=== PATIENT | male | born 1965 | race Caucasian/White ===

== ENCOUNTER 2016-10-07 10:02 | Emergency (ER) | payer OTHER ==
[~2016-10-07] VITALS: Ht 180.3 cm; Wt 86.4 kg
[~2016-10-07 10:02] MED LIST: LEVO750T9 PO; METR500T PO
[2016-10-07 10:06] VITALS: BP 174/106; PULSE 66; RESP 15; O2SAT 100
[2016-10-07 10:39] VITALS: BP 164/89; PULSE 64; RESP 18; O2SAT 100
--- NOTE | 2016-10-07 10:45 | ED.REPORT ---
HPI-Chest Pain 40 and Over Date of Service Oct 07, 2016 ED Provider: Waldemar Carvalho MD The patient is a 51 year old male with history of untreated hypertension who was sent to the emergency department from urgent care. The patient was being seen at urgent for nausea, vomiting, and a rash to his wrist. He mentioned to staff about a recent episode of chest pain and was sent to the emergency department. The patient states that 1 week ago he had an episode of chest pain, palpitations, and diaphoresis. He took his blood pressure and it was 178 systolic. He has not experienced chest pain since this episode. He denies current chest pain, shortness of breath, abdominal pain, fever or chills. His nausea and vomiting has improved but he does feel generally weak. Nursing Notes Stated Complaint: CHEST PAIN/SENT FROM Chief Complaint: Chest Pain Nursing Notes Reviewed: Yes Allergies: Coded Allergies: No Known Allergies (Unverified , 08/30/15) Scheduled Mupirocin (Mupirocin Ointment) 22 Gm Oint...g. 1 APPLIC TOP TID Scheduled PRN Ondansetron ODT (Zofran ODT) 4 Mg Tablet 4 MG PO Q4H PRN PRN For Nausea Ondansetron ODT (Zofran ODT) 4 Mg Tablet 4 MG PO Q4H PRN PRN For Nausea General Time Seen by MD: 10:39 Chief Complaint Chest pain Hx Obtained From: Patient Arrived By: Walk-in Sudden in Onset?: Yes Onset Occurred: 1 week ago Symptom Duration: 1 - 4 hours Location: : Substernal Quality: Painful Radiation: : Does not radiate Migration/Movement: Reports: None Severity: Current: Mild Severity: Maximum: Moderate Recent Healthcare: No recent hospitalization, Recent doctor visit Similar Sx Previous: No Past Medical History Past Medical History Hypertension, not on medication Past Surgical History None Family History Noncontributory Smoking History Never Smoker Social History Alcohol Use: 3-5 per day Drug Use: Denies drug use Other Social History: Good social support, Local resident Ambulatory Status Independent Review of Systems Constitutional: Reports: Weakness - generalized, Denies: Chills, Fever Respiratory: Denies: Shortness of breath Cardiovascular: Reports: Chest pain (now resolved), Palpitations (now resolved) GI: Reports: Nausea, Vomiting, Denies: Abdominal pain Skin: Reports Diaphoresis (now resolved), Reports Itching, Reports Rash Complete sys rev & neg: except as marked. Physical Exam Initial Vital Signs Vital Signs (First) Date Time Temp Pulse Resp B/P Pulse Ox O2 Delivery O2 Flow Rate FiO2 10/07/16 10:06 36.2 66 15 174/106 100 Room Air Initial VS: Reviewed Head / Eyes: Atraumatic, Normocephalic, PERRL ENT: Mucous membranes moist, Conjunctiva normal, No scleral icterus Neck: Supple, Non-tender, Full range of motion Lymphatic: No lymphadenopathy Extremities: Vascular intact, Neuro intact, No swelling, No tenderness Neurologic: Alert, Oriented, Nonfocal Psychiatric: Mood/affect normal, Behavior normal, Normal thought content General/Constitutional: Awake, Alert, No acute distress, Well appearing, Cooperative Respiratory / Chest: Atraumatic, Breath sounds NL, Breath sounds = bilat, No respiratory distress, No rales, No rhonchi, No wheezing, No stridor, No chest tenderness Cardiovascular: Heart rate NL, Regular rhythm, Heart sounds NL, No gallop, No murmurs, No rubs, Peripheral circulation NL, Pulses = bilaterally, No gross BP differential Abdomen: Atraumatic, Soft, Non-tender, McBurney's non-tender, No guarding, No rebound, BS normoactive, No distention, No hernia, No palpable mass Skin: Warm, Dry Rash / Lesion Notes: He does have a slight pustular appearing rash about the dorsum of his left hand. He has a resolving pustular tiny bolus rash about the dorsum of his feet. Interpretation & Diagnostics Lab Results Interpretation Result Diagram: 10/07/16 1038 10/07/16 1038 Test 10/07/16 10:38 10/07/16 10:45 White Blood Count 6.7th/mm3 (3.8-10.1) Red Blood Count 4.94mil/mm3 (4.40-5.80) Hemoglobin 16.3g/dL (13.8-17.2) Hematocrit 46.8% (41.0-50.0) Mean Corpuscular Volume 94.7fL (81-100) Mean Corpuscular Hemoglobin 33.0pg (27.0-35.0) Mean Corpuscular Hemoglobin Concent 34.8% (32.0-37.0) Red Cell Distribution Width 12.5% (12.3-15.4) Platelet Count 328bil/L (150-400) Neutrophils (%) (Auto) 68.8% (40-74) Lymphocytes (%) (Auto) 19.3% (14-46) Monocytes (%) (Auto) 9.6% (4-12) Eosinophils (%) (Auto) 1.6% (0-5) Basophils (%) (Auto) 0.4% (0-3) Sodium Level 136mEq/L (134-144) Potassium Level 4.6mEq/L (3.5-5.2) Chloride Level 96mEq/L (97-108) Carbon Dioxide Level 24mmol/L (18-29) Blood Urea Nitrogen 17mg/dL (6-24) Creatinine 0.90mg/dL (0.76-1.27) Estimat Glomerular Filtration Rate 95mL/min (>59) Glucose Level 111mg/dL (60-99) Calcium Level 9.0mg/dL (8.5-10.1) Magnesium Level 2.1mg/dL (1.6-2.6) Total Bilirubin 0.6mg/dL (0.0-1.2) Aspartate Amino Transf (AST/SGOT) 31U/L (0-50) Alanine Aminotransferase (ALT/SGPT) 23U/L (0-44) Alkaline Phosphatase 101U/L (25-150) Troponin T 0.010ug/L (0.0-0.011) Total Protein 7.8g/dL (6.4-8.4) Albumin 4.7g/dL (3.4-5.0) Hold Terry Top Tube Received (Received) ECG Interpretation ECG Interpretation: Sinus rhythm Normal axis Normal intervals No ST segment changes No T wave abnormalities No prior for comparison Time: 11:00 Interpreted by: ED physician X-Ray Chest Interpretation Chest Xray Interpretation: IMPRESSION: Normal for age. Dictated by: Brennon Chen M.D. on 10/07/2016 at 11:43 Interpretation / Wet Read by: Interpret - Radiologist Re-Eval/Medical Decision Med Decision/Clinical Course The patient is a 51 year old male with history of untreated hypertension who was sent to the emergency department from urgent care. The patient was being seen at urgent for nausea, vomiting, and a rash to his wrist. He mentioned to staff about a recent episode of chest pain and was sent to the emergency department. The patient states that 1 week ago he had an episode of chest pain, palpitations, and diaphoresis. He took his blood pressure and it was 178 systolic. He has not experienced chest pain since this episode. He denies current chest pain, shortness of breath, abdominal pain, fever or chills. His nausea and vomiting has improved but he does feel generally weak. Emergency department the patient is afebrile stable vital signs in no apparent distress. He denies any history of coronary artery disease or active chest pain. EKG was obtained and interpreted by myself as documented above. CXR: Obtained, reviewed and interpreted by myself shows no evidence of acute infiltrates, effusions or pneumothorax. Cardiac and mediastinal silhouette normal. No bony or soft tissue abnormalities. LABS: CBC unremarkable, CMP unremarkable, troponin negative Overall presentation at this time highly unconvincing for acute coronary syndrome. Patient advised to follow-up with primary care physician on an outpatient basis and discuss stress test at this time. The patient does not desire admission to the hospital nor do I feel that this is immediately indicated. Examination of his rash is not suggestive of herpetic grace or Balbir syndrome. This seems consistent with mild bullous impetigo and I prescribed topical mupirocin. The rash was his reason for initially presenting for medical treatment today and I feel that this is an appropriate therapy. He will follow up closely with his primary care physician. 4. Return precautions were reviewed in detail and he was discharged in good condition. Source of Hx: Old records Time of Eval: 12:34 Re-Evaluation/Progress Note: Discussed results, diagnosis, and plan for discharge. All questions were addressed. Counseled Regarding: Diagnosis, Lab results, Need for follow-up, When/why to return to ED Discharge & Departure Primary Impression: Chest pain Chest pain type: unspecified Qualified Code: R07.9 - Chest pain, unspecified Additional Impressions: Nausea & vomiting Vomiting type: unspecified Vomiting Intractability: unspecified Qualified Code: R11.2 - Nausea with vomiting, unspecified Rash Bullous impetigo Disposition: Home Discharge Condition All VS Reviewed: Yes Condition: Stable Patient Instructions: Chest Pain (ED) Additional Instructions: Thank you for seeking care at the emergency room. Our primary goal today in the ED was to evaluate you for any life-threatening conditions. Your evaluation was reassuring. You will be discharged with a prescription for Zofran that you can use for nausea and vomiting. Use the ointment as prescribed for your rash. Both of these prescriptions will be at your pharmacy. You should follow-up with your primary doctor in the next week if your symptoms continue. We have given you a referral to the residency clinic. You should return to the ED immediately if you develop recurrent chest pain, shortness of breath, uncontrollable vomiting, lightheadedness, weakness or any other concerning signs or symptoms. Thank you for letting us partake in your care today. Referrals: Sara Stewart (PCP) Cecilibsamuel Attestation Portions of this note were transcribed by Nina Williamson. I, Dr. Carvalho personally performed the history, physical exam and medical decision-making; I reviewed and confirmed the accuracy of the information in the transcribed note. Signed by: Akash Ryan, 10/07/2016 at 1245. copies to: Sara Stewart Beck O MD Oct 07, 2016 10:45 Nina Williamson Oct 07, 2016 11:07
[2016-10-07 10:47] LABS: BASOPHILS % (AUTO) 0.4 % (0-3); EOSINOPHILS % (AUTO) 1.6 % (0-5); MONOCYTES % (AUTO) 9.6 % (4-12); Mean Corpuscular Volume 94.7 fL (81-100); NEUTROPHILS % (AUTO) 68.8 % (40-74); Platelet Count 328 bil/L (150-400)
[2016-10-07 11:43] LABS: TROPONIN T 0.01 ug/L (0.0-0.011)
--- NOTE | 2016-10-07 11:44 | DRSVH ---
PROCEDURE: X-RAY CHEST ONE VIEW, PORTABLE ([id number]) INDICATIONS: cp TECHNIQUE: One view of the chest was acquired. COMPARISON: None. FINDINGS: Surgical changes and devices: None. Lungs and pleura: No pleural effusions or pneumothorax. Lungs are clear. Mediastinum: Mediastinal contours appear normal. Heart size is normal. Bones and chest wall: No suspicious bony lesions. Overlying soft tissues appear unremarkable. IMPRESSION: Normal for age. Dictated by: Brennon Chen M.D. on 10/07/2016 at 11:43 Approved by: Brennon Chen M.D. on 10/07/2016 at 11:43
[2016-10-07 11:54] LABS: Magnesium 2.1 mg/dL (1.6-2.6)
[2016-10-07] MEDS ORDERED: ONDA4TAB9 PO ×2 (12:34→12:43)
[2016-10-07] MEDS ORDERED: MUPI22OI2 TOP (12:42)
[2016-10-07 12:57] VITALS: BP 139/89; PULSE 69; RESP 16; O2SAT 100
== END 2016-10-07 12:57 | disposition home or self-care (01) ==
LOC: SED 10:02
DX: R07.2 Precordial pain (principal); R11.2 Nausea with vomiting, unspecified; L01.03 Bullous impetigo

== ENCOUNTER 2016-12-04 15:10 | Emergency (ER) | payer OTHER ==
[~2016-12-04] VITALS: Ht 180.3 cm; Wt 85.5 kg
[~2016-12-04 15:10] MED LIST changes: -LEVO750T9 PO; -METR500T PO; +MUPI22OI2 TOP; +ONDA4TAB9 PO
[2016-12-04 15:13] VITALS: BP 144/96; PULSE 57; RESP 18; O2SAT 99
--- NOTE | 2016-12-04 15:40 | ED.REPORT ---
HPI-Chest Pain 40 and Over Date of Service Dec 04, 2016 ED Provider: Humza Medrano MD A 51 year old male with a history of hypertension presents to the ED from Urgent Care with fatigue onset five days ago. Associated symptoms include weakness, intermittent blurred vision, lightheadedness, and dizziness exacerbated with standing up. The patient also reports intermittent left-sided chest pain (lasting seconds to minutes) and intermittent diaphoresis onset earlier this year, for which he was seen in the ED two months ago. The chest pain is "dull" and "achy" in nature. The patient denies shortness of breath, lower extremity swelling, hypotension, or other symptoms. He recently began taking lisinopril on 11/23/16. Nursing Notes Stated Complaint: DIZZINESS FROM UC Chief Complaint: Chest Pain Nursing Notes Reviewed: Yes ([employer] not reconciled) Allergies: Coded Allergies: No Known Allergies (Unverified , 12/04/16) Scheduled Mupirocin (Mupirocin Ointment) 22 Gm Oint...g. 1 APPLIC TOP TID Scheduled PRN Ondansetron ODT (Zofran ODT) 4 Mg Tablet 4 MG PO Q4H PRN PRN For Nausea Ondansetron ODT (Zofran ODT) 4 Mg Tablet 4 MG PO Q4H PRN PRN For Nausea General Time Seen by MD: 15:39 Chief Complaint Other (Fatigue) Hx Obtained From: Patient Arrived By: Walk-in Sudden in Onset?: No Onset Occurred: 5 days ago Symptom Duration: Since onset Location: : Chest left Quality: Aching, Dull, Painful Radiation: : Does not radiate Severity: Current: No pain currently Severity: Maximum: Moderate Associated with: Reports: Diaphoresis, Denies: Shortness of Breath Pertinent Negative: Relieved by nothing Context Related History: Reports: Hypertension Recent Healthcare: Recent doctor visit Similar Sx Previous: Yes Past Medical History Past Medical History Notes: Patient seen in ED in recent weeks for chest pain, negative workup at that time-records do not indicate these had a stress test. Past Medical History Hypertension, started on lisinopril/HCTZ 11/23/16 Denies: Coronary artery disease, Diabetes mellitus, Hyperlipidemia Past Surgical History None Family History Father of heart disease at age 78 Smoking History Never Smoker Social History Alcohol Use: 3-5 per day Drug Use: Denies drug use Other Social History: Good social support, Local resident Ambulatory Status Independent Review of Systems Review of Systems Note: - Hypotension Constitutional: Reports: Fatigue, Weakness - generalized, Denies: Fever Respiratory: Denies: Non-productive cough, Shortness of breath Cardiovascular: Reports: Chest pain (Left-sided, intermittent) GI: Denies: Diarrhea, Vomiting Musculoskeletal: Denies: Extremity swelling Skin: Reports Diaphoresis (Intermittent) Neurologic: Reports: Dizziness, Lightheaded, Vision change (Blurred, intermittent) Complete sys rev & neg: except as marked. Physical Exam Physical Exam Notes: Initial Vital Signs Vital Signs (First) Date Time Temp Pulse Resp B/P Pulse Ox O2 Delivery O2 Flow Rate FiO2 12/04/16 15:13 36.5 57 18 144/96 99 Room Air Initial VS: Reviewed, Vital signs normal Head / Eyes: Atraumatic, Normocephalic ENT: Conjunctiva normal, No scleral icterus Neck: Supple, Full range of motion Skin: Warm, Dry, No cyanosis Neurologic: Alert, Oriented, Nonfocal Psychiatric: Mood/affect normal, Behavior normal, Normal thought content General/Constitutional: Awake, Alert, No acute distress Respiratory / Chest: Breath sounds NL, Breath sounds = bilat, No respiratory distress Cardiovascular: Regular rhythm, Heart sounds NL, No murmurs Heart Rate / Rhythm: Positive: Bradycardia (Mild) Abdomen: Soft, Non-tender Lower Extremity / Pelvis / MS: Inspection NL, No swelling, Non-tender Interpretation & Diagnostics Lab Results Interpretation Result Diagram: 12/04/16 1549 12/04/16 1549 Test 12/04/16 15:49 12/04/16 17:10 White Blood Count 6.2th/mm3 (3.8-10.1) Red Blood Count 4.88mil/mm3 (4.40-5.80) Hemoglobin 16.1g/dL (13.8-17.2) Hematocrit 47.5% (41.0-50.0) Mean Corpuscular Volume 97.3fL (81-100) Mean Corpuscular Hemoglobin 33.0pg (27.0-35.0) Mean Corpuscular Hemoglobin Concent 33.9% (32.0-37.0) Red Cell Distribution Width 12.8% (12.3-15.4) Platelet Count 312bil/L (150-400) Neutrophils (%) (Auto) 63.6% (40-74) Lymphocytes (%) (Auto) 24.2% (14-46) Monocytes (%) (Auto) 9.7% (4-12) Eosinophils (%) (Auto) 1.8% (0-5) Basophils (%) (Auto) 0.5% (0-3) Prothrombin Time 9.9sec (8.1-12.5) Prothromb Time International Ratio 0.93ratio Activated Partial Thromboplast Time 28.8sec (22.8-33.0) Sodium Level 137mEq/L (134-144) Potassium Level 4.3mEq/L (3.5-5.2) Chloride Level 97mEq/L (97-108) Carbon Dioxide Level 25mmol/L (18-29) Blood Urea Nitrogen 20mg/dL (6-24) Creatinine 0.88mg/dL (0.76-1.27) Estimat Glomerular Filtration Rate 97mL/min (>59) Glucose Level 106mg/dL (60-99) Calcium Level 9.4mg/dL (8.5-10.1) Magnesium Level 2.0mg/dL (1.6-2.6) Total Bilirubin 0.5mg/dL (0.0-1.2) Aspartate Amino Transf (AST/SGOT) 27U/L (0-50) Alanine Aminotransferase (ALT/SGPT) 24U/L (0-44) Alkaline Phosphatase 92U/L (25-150) Total Protein 8.0g/dL (6.4-8.4) Albumin 4.9g/dL (3.4-5.0) Hold Terry Top Tube Received (Received) Troponin T < 0.010ug/L (0.0-0.011) ECG Interpretation ECG Interpretation: Normal sinus rhythm rate 57 Left ventricular hypertrophy No acute ischemia No interval change compared with previous (10/07/16) (Two ECGs were done, for some reason only one posted to the record.) Time: 15:26 Interpreted by: ED physician X-Ray Chest Interpretation Chest Xray Interpretation: IMPRESSION: Stable chest. No acute cardiopulmonary process is suspected. Dictated by: Toni Clifton M.D. on 12/04/2016 at 14:59 View: Portable, 1 view Interpretation / Wet Read by: Interpret - Radiologist Re-Eval/Medical Decision Med Decision/Clinical Course HEART SCORE is 3 was low risk for MACE and reasonable appropriate for discharge This is a 51-year-old male presents with the chief complaint is feeling dizzy and lightheaded and fatigued ever since she started a new blood pressure medicine about 10 days ago. He is also still having some intermittent, atypical , nonexertional chest discomfort which she has had off and on over the months which prompted an come to the ED a number of weeks ago, which uncovered the hypertension. The patient is no other complaints is not currently having chest discomfort. He is not certain if it is truly orthostatic, but thinks it might be-although is no abnormal orthostatic vitals in the department. He denies fever, bleeding, fever, chills or additional complaint. Vision clinically appears well. His EKG reveals mild LVH which is unchanged from previous. Blood work is normal including troponins 2. Overall the timing of his dizziness makes it indeed suspicious symptoms might be related to the medication, but is not definitive and the patient is not orthostatic. His blood pressure is improved compared to previous, and came down the 120 systolic without any intervention. I am not finding evidence for acute cord syndrome, but with this his age, gender risk factors I have recommended follow-up stress testing. His heart score puts but low risk and outpatient follow-up is appropriate. I discussed the case with the on-call provider for the residency clinic to facilitate the follow-up. At this time a dangerous cause of the intermittent chest discomfort he has had a not been identified. I am not finding indication for additional testing at this time. The symptoms of dizziness and fatigue may indeed be due to medication, and the current plan is to stop the medication and follow-up with the PCP for recheck. Patient is discharged in improved condition. Return precautions reviewed. Source of Hx: Old records Time of Eval: 17:21 Patient Status: Condition improved Re-Evaluation/Progress Note: Discussed with patient lab, x-ray, and ECG results, diagnosis, and plan for repeat blood test with discharge if normal. Patient agrees with plan for care and all questions were addressed. Time of Eval: 18:01 Patient Status: Condition improved Re-Evaluation/Progress Note: Discussed with patient repeat lab results and plan for discharge. Follow-up and return to the ER instructions given. Patient agrees with plan for care and all questions were addressed. Consultation : Consulted With: Primary care physician Call Returned at: 18:08 Aquatic Laborer: Agrees with eval, Agrees with plan Note: [facility]: Discussed patient's case and plan for close follow-up. Differential Diagnosis: Positive: Chest pain, Negative: Acute coronary syndrome, Asthma exacerbation, Congestive heart failure, Dysrhythmia, Esophageal rupture, Gun shot wound chest, Hypertroph cardiomyopathy, Ericka-Landeros syndrome, Myocardial infarction, Myocarditis, Peptic ulcer disease, Pneumomediastinum, Pneumonia, Pneumothorax, Pulmonary edema, Pulmonary embolism, Stab wound chest Counseled Regarding: Diagnosis, Lab results, Need for follow-up, When/why to return to ED Discharge & Departure Primary Impression: Dizziness, nonspecific Additional Impression: Chest pain Chest pain type: unspecified Qualified Code: R07.9 - Chest pain, unspecified Disposition: Home Discharge Condition All VS Reviewed: Yes Condition: Improved Additional Instructions: 1. Your tests in the emergency department were normal. Her blood tests, electrolytes, and heart tests were all normal. We did not find signs of a dangerous heart attack or problem-however, I do recommend you call your doctor to schedule a "stress test" to formally complete a cardiac evaluation given your symptoms. 2. Your blood pressure was down to normal here in the 120s on recheck. I do think you are correct to be concerned that your symptoms to correlate with the initiation of the new medicine (lisinopril-HCTZ), so I would stop that medicine for now. 3. Call for follow up with Yulia Lopez at the residency clinic. Referrals: [facility] (PCP) [facility] Residency Clinic Scribe Attestation Portions of this note were transcribed by Dacia Sprague. I, Dr. Medrano, personally performed the history, physical exam, and medical decision-making; I reviewed and confirmed the accuracy of the information in the transcribed note. Signed by: Akash Hawkins, 12/04/2016, 18:45 copies to: [facility] Residency Clinic Humza Medrano MD Dec 04, 2016 15:40 DACIA SPRAGUE Dec 04, 2016 15:42
[2016-12-04 16:04] LABS: BASOPHILS % (AUTO) 0.5 % (0-3); EOSINOPHILS % (AUTO) 1.8 % (0-5); MONOCYTES % (AUTO) 9.7 % (4-12); Mean Corpuscular Volume 97.3 fL (81-100); NEUTROPHILS % (AUTO) 63.6 % (40-74); Platelet Count 312 bil/L (150-400)
--- NOTE | 2016-12-04 16:07 | DRSVH ---
PROCEDURE: X-RAY CHEST ONE VIEW, PORTABLE ([id number]) INDICATIONS: CHEST PAIN TECHNIQUE: One view of the chest was acquired. COMPARISON: [facility], CR, XR CHEST 1VW (PORTABLE), 10/07/2016, 10:49. FINDINGS: Surgical changes and devices: None. Lungs and pleura: No pleural effusions or pneumothorax. Lungs are clear. Mediastinum: Mediastinal contours appear normal. Heart size is normal. Bones and chest wall: No suspicious bony lesions. Overlying soft tissues appear unremarkable. IMPRESSION: Stable chest. No acute cardiopulmonary process is suspected. Dictated by: Toni Clifton M.D. on 12/04/2016 at 14:59 Approved by: Toni Clifton M.D. on 12/04/2016 at 15:05
[2016-12-04 16:17] LABS: INR 0.93 ratio
[2016-12-04 16:23] LABS: TROPONIN T < 0.010 ug/L (0.0-0.011)
[2016-12-04 17:58] VITALS: BP_SYST 122; BP_SYST 127; BP_DIAS 83; BP_DIAS 87; PULSE 72; RESP 16; O2SAT 98
== END 2016-12-04 19:37 | disposition home or self-care (01) ==
LOC: SED 15:32
DX: R42 Dizziness and giddiness (principal); R07.9 Chest pain, unspecified; I10 Essential (primary) hypertension